=== PATIENT | female | born 1945 | race Hispanic/Latino ===

== ENCOUNTER → 2022-11-17 | Outpatient (CLI) | payer OTHER ==
[~2022-11-17] MED LIST: IOHEXOL 350 MG/ML 100ML INFUS..BTL IV ONE; METOPROLOL TARTRATE 1 MG/ML 5ML VIAL IV ONE
== END | disposition home or self-care (01) ==
LOC: RAH 07:27
PROVIDERS: ATTEND Internal Medicine Cardiovascular Disease
DX: I20.9 Angina pectoris, unspecified (principal); R07.9 Chest pain, unspecified
CPT/HCPCS: 75574; J3490; Q9967